=== PATIENT | female | born 1945 | race Caucasian/White ===

== ENCOUNTER 2016-08-06 13:52 | Outpatient (CLI) ==
--- NOTE | 2016-08-06 14:26 | DI ---
EXAM: Lumbar spine three views HISTORY: Back pain COMPARISON: 03/15/2012 TECHNIQUE: Three views lumbar spine were performed FINDINGS: The bones appear demineralized. Sacroiliac joints intact. Sacral arcuate lines intact. Vertebral bodies normal height. No fracture. Multilevel marginal osteophyte formation. Mild mult ilevel intervertebral disc space narrowing. Multilevel facet arthrosis. 2 mm retrolisthesis L1 on L 2 and 2 mm anterolisthesis of L4 on L5. Mild atherosclerotic vascular calcification. IMPRESSION: Chronic discogenic degenerative disease and facet arthrosis.
--- NOTE | 2016-08-06 14:47 | US ---
EXAM: Ultrasound venous Doppler bilateral lower extremity HISTORY: Right and left leg pain, bilateral burning, chronic swelling COMPARISON: None TECHNIQUE: Venous duplex ultrasound of the right and left lower extremity was performed using color , kaur-scale, and Doppler flow imaging. FINDINGS: There is normal color flow and kaur scale appearance of the right and left common femoral , greater saphenous, profunda femoral, femoral, popliteal, peroneal, posterior tibial, and anterior tibial veins without evidence of intraluminal thrombus. Compression and augmentation is normal. No reflux is identified. IMPRESSION: No right or left lower extremity deep venous thrombosis.
== END 2016-08-06 13:53 | disposition home or self-care (01) ==
LOC: RAD 13:52
PROVIDERS: ATTEND Internal Medicine
DX: M54.9 Dorsalgia, unspecified (principal); M79.605 Pain in left leg; M79.604 Pain in right leg